=== PATIENT | male | born 1970 | race Caucasian/White ===

== ENCOUNTER 2019-12-08 07:47 | Emergency (ER) | payer OTHER ==
[~2019-12-08] VITALS: Ht 177.8 cm; Wt 78.0 kg
[2019-12-08] MEDS ORDERED: TETANUS, DIPHTHERIA, PERTUSSIS VAC/PF 0.5ML (>7YR OLD) IM ONE (08:30)
[2019-12-08] MEDS ORDERED: LIDOCAINE HCL/PF 1% 10 MG/ML 5ML VIAL IJ ONE (08:30)
[2019-12-08] MEDS ORDERED: BACITRACIN 15GM TUBE TOP ONE (09:15)
[2019-12-08] MEDS ORDERED: OXYCODONE HCL/ACETAMINOPHEN 5/325MG TABLET PO ONE (09:30)
[2019-12-08 11:35] VITALS: BP 118/68
== END 2019-12-08 11:35 | disposition home or self-care (01) ==
LOC: ER 07:47
DX: S02.832A Fracture of medial orbital wall, left side, initial encounter for closed fracture (principal); S82.831A Other fracture of upper and lower end of right fibula, initial encounter for closed fracture; S00.01XA Abrasion of scalp, initial encounter; S01.511A Laceration without foreign body of lip, initial encounter; S63.681A Other sprain of right thumb, initial encounter; W10.8XXA Fall (on) (from) other stairs and steps, initial encounter; Y93.89 Activity, other specified; Y92.018 Other place in single-family (private) house as the place of occurrence of the external cause
CPT/HCPCS: 12011; 70486; 73120; 73600; 90471; 90715; 99284; J3490; Z7610